=== PATIENT | female | born 1970 | race Caucasian/White ===

== ENCOUNTER → 2016-06-18 | Outpatient (CLI) | payer OTHER ==
[~2016-06-18] MED LIST: DOXYCYCLINE HY100 M1 PO; PHENERGAN DM1 ML PO; PREDNISONE PO
--- NOTE | ~2016-06-18 | MY6 ---
[facility] A Service of [facility] & [facility] RADIOLOGY TEXT RESULTS PATIENT: CHRIS POWER LOCATION: [facility] : 72 UNIT #: [id number] AGE: [address]: Bernice Lugo MD SEX: F ORDER DR: [id number] [id number] [facility]. [place], [place] [address] [id number] O MR#: [id number] Acc #: [id number] NAME: CHRIS POWER : 1970 SEX: F STUDY DATE/TIME: 06/18/2016 11:43 UNIT: [facility] ROOM: STUDY DESCRIPTION: MY Mammogram Dx Dig Feliciano Attending Physician: Bernice Lugo M.D. Ordering Physician: Bernice Lugo M.D. Primary Care Physician: Bernice Lugo M.D. MEDICAL IMAGING REPORT This report is preliminary unless electronic signature is present EXAM Bilateral digital diagnostic mammogram with CAD. DATE 06/18/2016. HISTORY Palpable abnormality with increase in tenderness in the upper outer right breast. COMPARISON Bilateral diagnostic mammogram 08/30/2015. Bilateral screening mammogram 06/01/2014. Bilateral breast ultrasound 08/30/2015 and 02/20/2013. FINDINGS CC, MLO and true ML views were obtained of the right breast. CC and MLO views were obtained of the left breast. The study was performed utilizing digital technique and reviewed with an FDA-approved CAD device. Heterogeneously dense fibroglandular tissue is present bilaterally which can limit sensitivity of mammography. Triangular marker was placed over the upper outer right breast mid to posterior third denoting site of palpable complaint. Nodular density previously seen at this location appears somewhat less conspicuous. A nodular density in the inferior left breast near the 7-8 o'clock axis and another fibronodular density in the lateral hemisphere left breast near the 3 o'clock axis, each appear slightly increased. No definite new nodule is seen. There is no architectural distortion or microcalcification. Targeted diagnostic right breast ultrasound was performed at the site of patient's palpable complaint. The 10 o'clock axis 2 cm from the nipple, a STS. [facility] A Service of [facility] & [facility] RADIOLOGY TEXT RESULTS PATIENT: CHRIS POWER LOCATION: [facility] #: [id number] : [birth year] UNIT #: [id number] AGE: [address]: Bernice Lugo MD SEX: F ORDER DR: 10 x 4 x 11 mm benign-appearing cyst is seen. It is slightly larger than on the previous study, where it measured 10 x 5 x 5 mm. Scattered smaller fibrocystic changes are seen in the same vicinity. No suspicious solid mass is identified. The left breast, at the 3 o'clock axis, a dominant 2.6 x 0.9 x 2.4 cm simple cyst is seen, larger than on the prior study where it measured 2.1 x 1.9 x 0.9 cm. A mildly complex cyst immediately adjacent to this measures 4 x 5 x 5 mm and is unchanged. In the 8 o'clock position of the left breast, a 5 x 4 x 5 mm simple cyst is seen 3 cm from the nipple, slightly larger, previously measuring 3 mm. At the 7 o'clock axis of the left breast, there is a dominant cyst measuring 1.6 x 1.7 x 1.0 cm, larger than on the previous study where it measured 1.4 x 0.8 x 1.2 cm. Incidental note is made of another mildly complex cyst in the 8 o'clock axis of the left breast measuring 8 x 7 x 4 mm. No suspicious solid nodule is seen within either breast on targeted sonographic imaging. IMPRESSION 1. BIRADS category 2. Benign findings. Simple cysts are demonstrated within both breasts. At the site patient's palpable complaint in the upper outer right breast 10 o'clock, benign-appearing cyst is seen, slightly larger than on the previous study. 2 dominant cysts within the left breast near the 7 o'clock and the 3 o'clock axis each appear slightly larger, as well. However, there are no mammographic or sonographic features suspicious for malignancy on today's exam. 2. With respect to the patient's dominant 2.6 cm cyst in the 3 o'clock left breast, if this creates significant increased pain or cosmetic deformity for the patient, it would be easily amenable for ultrasound-guided aspiration. 3. Findings and recommendations were discussed with the patient today in the radiology department. She was advised to continue monthly self-breast examination and annual physician physical examination. Routine screening mammogram recommended in 1 year. Patients over the age of 40 are entered into a reminder system with target due date for the next mammogram. A result letter will also be sent to the patient. BIRADS: 2 Benign finding. Dictated by... Nehal Jaramillo M.D. [facility] A Service of [facility] RADIOLOGY TEXT RESULTS PATIENT: CHRIS POWER LOCATION: [facility] : 72 UNIT #: [id number] AGE: [address]: Bernice Lugo MD SEX: F ORDER DR: THIS IS AN ELECTRONICALLY VERIFIED REPORT Nehal Jaramillo M.D. at 06/19/2016 7:11 AM KATHY/gris TD: 06/18/2016 13:37 JOB #: [id number] MEDICAL IMAGING REPORT Page 1 of 1 COPY
--- NOTE | ~2016-06-18 | US17 ---
[facility] A Service of [facility] RADIOLOGY TEXT RESULTS PATIENT: CHRIS POWER LOCATION: [facility] : 72 UNIT #: [id number] AGE: [address]: Bernice Lugo MD SEX: F ORDER DR: [id number] [id number] [facility]. [place], [place] [address] [id number] O MR#: [id number] Acc #: [id number] NAME: CHRIS POWER : 1970 SEX: F STUDY DATE/TIME: 06/18/2016 12:10 UNIT: [facility] ROOM: STUDY DESCRIPTION: US Breast Bilateral Attending Physician: Bernice Lugo M.D. Ordering Physician: Bernice Lugo M.D. Primary Care Physician: Bernice Lugo M.D. MEDICAL IMAGING REPORT This report is preliminary unless electronic signature is present EXAM Bilateral diagnostic breast ultrasound. DATE 06/18/2016 HISTORY Palpable abnormality and tenderness in the right breast. No bilateral breast cysts. Follow up. COMPARISON Bilateral breast ultrasound 08/22/2015. Bilateral diagnostic mammogram 06/18/2016, 08/30/2015, 06/01/2014. FINDINGS Targeted sonographic imaging was performed of the right breast at the 10 o'clock axis near the site of the patient's palpable complaint and tenderness. Additional target sonographic imaging was performed of the left breast at the 7 o'clock to 8 o'clock axis and 3 o'clock axis. Please refer to the diagnostic mammogram report from this same date for full description of mammographic and sonographic findings and recommendations. IMPRESSION BIRADS 2. Benign findings. Please refer to the diagnostic mammogram report for this same day for full description of mammographic and sonographic findings and recommendations. Dictated by... Nehal Jaramillo M.D. THIS IS AN ELECTRONICALLY VERIFIED REPORT Nehal Jaramillo M.D. at 06/19/2016 7:11 AM [facility] A Service of [facility] RADIOLOGY TEXT RESULTS PATIENT: CHRIS POWER LOCATION: [facility] : 72 UNIT #: [id number] AGE: [address]: Bernice Lugo MD SEX: F ORDER DR: TD: 06/18/2016 13:48 JOB #: [id number] MEDICAL IMAGING REPORT Page 1 of 1 COPY
== END | disposition home or self-care (01) ==
LOC: CMAM 11:17
DX: N60.09 Solitary cyst of unspecified breast (principal); N60.01 Solitary cyst of right breast; N60.02 Solitary cyst of left breast
CPT/HCPCS: 76641; G0204

== ENCOUNTER 2016-10-17 12:39 | Emergency (ER) | payer SELFPAY ==
[~2016-10-17] VITALS: Ht 152.4 cm; Wt 61.2 kg
--- NOTE | ~2016-10-17 | EKG ---
PATIENT: CHRIS POWER UNIT #: [id number] Ventricular Rate: 84 BPM Atrial Rate: 84 BPM P-R Interval: 102 ms QRS Duration: 86 ms Q-T Interval: 352 ms QTC Calculation(Bezet): 415 ms P [place]: 39 degrees Calculated R [place]: 39 degrees Calculated T [place]: 49 degrees Diagnosis Line: Sinus rhythm with short SD Diagnosis Line: Otherwise normal ECG Diagnosis Line: No previous ECGs available Diagnosis Line: Confirmed by CHELSI LEWIS MD ([id number]) on Diagnosis Line: 10/17/2016 10:49:32 PM INTERPRETING MD: SARA
--- NOTE | ~2016-10-17 | CR72 ---
[facility] A Service of [facility] RADIOLOGY TEXT RESULTS PATIENT: CHRIS POWER LOCATION: [facility] : 72 UNIT #: [id number] AGE: [address]: Maico Sung MD SEX: F ORDER DR: [id number] [facility] [address] [place], [place] [address] [id number] E MR#: [id number] Acc #: [id number] NAME: CHRIS POWER : 1970 SEX: F STUDY DATE/TIME: 10/17/2016 13:48 UNIT: [facility] ROOM: STUDY DESCRIPTION: CR Chest Single View Portable Attending Physician: Nik Sung M.D. Referring Physician: Jose Gonzáles M.D. Ordering Physician: Ed Octavio Car M.D. Primary Care Physician: Bernice Lugo M.D. MEDICAL IMAGING REPORT This report is preliminary unless electronic signature is present EXAM Chest x-ray, single-view portable. HISTORY Cough, hemoptysis and fever. COMMENT Single frontal portable view of the chest timed 13:48 on 10/17/2016, is reviewed. COMPARISON There is no previous chest x-ray. FINDINGS There is a infiltrate in the right lower lobe which is most concerning for aspiration or pneumonia. Follow up to complete resolution is recommended. There is some underlying thickening of the peribronchovascular soft tissues to the lower lungs and there might be a component of underlying asthma or bronchitis. There is nothing to suggest pleural effusion or pneumothorax. Heart size is normal and there is no evidence for congestive failure. IMPRESSION 1. Findings are most concerning for aspiration or pneumonia in the right lower lobe. There is probably a component of underlying asthma or bronchitis with some thickening of the peribronchovascular soft tissues bilateral lower lobes. Follow up to complete clearing recommended. Dictated by... Stephany Lowry M.D. [facility] A Service of [facility] RADIOLOGY TEXT RESULTS PATIENT: CHRIS POWER LOCATION: [facility] : 72 UNIT #: [id number] AGE: [address]: Maico Sung MD SEX: F ORDER DR: THIS IS AN ELECTRONICALLY VERIFIED REPORT Stephany Lowry M.D. at 10/17/2016 11:04 PM TORRIE/susan TD: 10/17/2016 16:20 JOB #: [id number] MEDICAL IMAGING REPORT Page 1 of 1 COPY
[2016-10-17 14:35] LABS: BASOPHIL% 0.2 % (0-2.5); EOSINOPHIL# 0.1 X10e3 (0-0.7); EOSINOPHIL% 1.9 % (0.0-7.0); HEMATOCRIT 40.6 % (35.0-45.0); HEMOGLOBIN 14.1 gm/dL (12.0-16.0); LYMPHOCYTE# 1.3 X10e3 (1.0-3.5); LYMPHOCYTE% 16.5 % (17.0-45.0); MEAN CELL VOLUME 96.2 FL (83-96); MEAN CORPUSCULAR HEMOGLOBIN 33.3 PG (28-34); MEAN CORPUSCULAR HGB CONC 34.6 g/dL (30-36); MONOCYTE# 0.7 X10e3 (0-1.0); MONOCYTE% 9.7 % (3.0-12.0); NEUTROPHIL# 5.5 X10e3 (1.5-7.1); NEUTROPHIL% 71.7 % (40-75); PLATELET COUNT 182 X10e3 (140-420); RED BLOOD COUNT 4.22 X10e (3.90-5.30); WHITE BLOOD COUNT 7.6 X10e3 (4.0-10.5)
[2016-10-17 14:39] LABS: DIFF IND NO
[2016-10-17 14:47] LABS: POC - CKMB <1.0 ng/mL (0.0-7.9); POC - TROPONIN <0.05 ng/mL (<=0.05)
[2016-10-17 14:56] LABS: CALCIUM SERUM 8.6 mg/dL (8.4-10.2); CREATININE SERUM 0.9 mg/dL (0.6-1.4); GLOM FILT RATE Estimated 77.3 mL/min (>60); POTASSIUM 3.4 mmol/L (3.5-5.1)
== END 2016-10-17 16:56 | disposition home or self-care (01) ==
LOC: CED 12:39
PROVIDERS: Emergency Medicine
DX: J18.1 Lobar pneumonia, unspecified organism (principal); Z87.891 Personal history of nicotine dependence
CPT/HCPCS: 36415; 71010; 80048; 82553; 83880; 84484; 85025; 85379; 87040; 93005; 94640; 96374; 99284; J0696